=== PATIENT | female | born 1980 | race Caucasian/White ===

== ENCOUNTER → 2019-01-05 17:07 | Outpatient (CLI) | payer MEDICAID | END | disposition home or self-care (01) | LOC: D.MAMMO 17:07 | DX: Z12.31 Encounter for screening mammogram for malignant neoplasm of breast (principal) ==

== ENCOUNTER → 2019-02-16 15:00 | Outpatient (CLI) | payer MEDICAID | END | disposition home or self-care (01) | LOC: D.MAMMO 14:00 | PROVIDERS: ATTEND Obstetrics & Gynecology Obstetrics | DX: R92.8 Other abnormal and inconclusive findings on diagnostic imaging of breast (principal) ==

== ENCOUNTER → 2019-10-26 17:38 | Outpatient (CLI) | payer SELFPAY | END | disposition home or self-care (01) | LOC: D.MAMMO 09-20 14:30 | PROVIDERS: ATTEND Obstetrics & Gynecology Obstetrics | DX: R92.8 Other abnormal and inconclusive findings on diagnostic imaging of breast (principal) ==